=== PATIENT | female | born 1980 | race Two or more races ===

== ENCOUNTER → 2018-10-01 | Outpatient (CLI) | payer OTHER | END | disposition home or self-care (01) | LOC: MAMO-SONO 07:15 → SONOGRAMA 07:55 | DX: Z12.31 Encounter for screening mammogram for malignant neoplasm of breast (principal); N92.0 Excessive and frequent menstruation with regular cycle ==

== ENCOUNTER 2018-12-03 08:21 | Outpatient (CLI) | payer OTHER | END 2018-12-03 08:27 | disposition home or self-care (01) | LOC: NUCLEAR 08:21 | DX: I87.2 Venous insufficiency (chronic) (peripheral) (principal) ==

== ENCOUNTER 2018-12-07 08:10 | Outpatient (CLI) | payer OTHER | END 2018-12-07 08:13 | disposition home or self-care (01) | LOC: NUCLEAR 08:10 | DX: I73.9 Peripheral vascular disease, unspecified (principal) ==

== ENCOUNTER → 2022-12-30 | Outpatient (CLI) | payer OTHER | END | disposition home or self-care (01) | LOC: MAMO-SONO 12:44 | PROVIDERS: ATTEND Specialist | DX: Z12.31 Encounter for screening mammogram for malignant neoplasm of breast (principal); N63.0 Unspecified lump in unspecified breast ==

== ENCOUNTER 2024-09-29 12:14 | Outpatient (CLI) | payer OTHER | END 2024-09-29 12:27 | disposition home or self-care (01) | LOC: MAMO-SONO 12:14 | PROVIDERS: ATTEND Specialist | DX: N63.0 Unspecified lump in unspecified breast (principal); Z12.31 Encounter for screening mammogram for malignant neoplasm of breast ==

== ENCOUNTER 2024-10-11 10:46 | Outpatient (CLI) | payer OTHER | END 2024-10-11 10:47 | disposition home or self-care (01) | LOC: SONOGRAMA 10:46 | PROVIDERS: ATTEND Pathology Anatomic Pathology & Clinical Pathology | DX: N83.11 Corpus luteum cyst of right ovary (principal) ==